=== PATIENT | male | born 1995 | race African-American/Black ===

== ENCOUNTER 2016-12-26 17:56 | Emergency (ER) | payer OTHER ==
[~2016-12-26] VITALS: Ht 177.8 cm; Wt 82.0 kg
[~2016-12-26 17:56] MED LIST: IBUP-1510 PO
[2016-12-26 18:27] VITALS: BP 137/71
== END 2016-12-26 23:00 | disposition left against medical advice (07) ==
LOC: ER 17:56
DX: Z04.3 Encounter for examination and observation following other accident (principal); M54.5 Low back pain; Z53.21 Procedure and treatment not carried out due to patient leaving prior to being seen by health care provider

== ENCOUNTER 2016-12-28 08:27 | Emergency (ER) | payer OTHER ==
[~2016-12-28] VITALS: Ht 177.8 cm; Wt 82.0 kg
[2016-12-28] MEDS ORDERED: IBUPROFEN 600MG TABLET PO ONE (09:45)
[2016-12-28 09:54] VITALS: BP 130/84
== END 2016-12-28 09:56 | disposition home or self-care (01) ==
LOC: ER 08:27
DX: S39.012A Strain of muscle, fascia and tendon of lower back, initial encounter (principal); F12.10 Cannabis abuse, uncomplicated; X58.XXXA Exposure to other specified factors, initial encounter; Y93.67 Activity, basketball; Y92.89 Other specified places as the place of occurrence of the external cause; Y99.8 Other external cause status
CPT/HCPCS: 99282

== ENCOUNTER 2017-12-24 08:06 | Emergency (ER) | payer OTHER ==
[~2017-12-24] VITALS: Ht 177.8 cm; Wt 82.0 kg
[~2017-12-24 08:06] MED LIST changes: -IBUP-1510 PO; +IBUP-2030 PO
[2017-12-24 08:18] VITALS: BP 133/77
== END 2017-12-24 09:29 | disposition home or self-care (01) ==
LOC: ER 08:37
DX: H92.02 Otalgia, left ear (principal); F12.10 Cannabis abuse, uncomplicated
CPT/HCPCS: 99282

== ENCOUNTER 2018-02-15 23:37 | Emergency (ER) | payer OTHER ==
[~2018-02-15] VITALS: Ht 177.8 cm; Wt 83.0 kg
[2018-02-15 23:59] VITALS: BP 136/62
== END 2018-02-16 05:35 | disposition left against medical advice (07) ==
LOC: ER 02-16 00:37
DX: M25.561 Pain in right knee (principal); Z53.21 Procedure and treatment not carried out due to patient leaving prior to being seen by health care provider

== ENCOUNTER 2018-02-16 09:08 | Emergency (ER) | payer OTHER ==
[~2018-02-16] VITALS: Ht 177.8 cm; Wt 84.7 kg
[2018-02-16 09:16] VITALS: BP 133/64
[2018-02-16] MEDS ORDERED: HYDROCODONE/ACETAMINOPHEN 5/325MG TABLET PO ONE (09:45)
== END 2018-02-16 10:30 | disposition home or self-care (01) ==
LOC: ER 09:08
DX: S89.81XA Other specified injuries of right lower leg, initial encounter (principal); F12.10 Cannabis abuse, uncomplicated; X58.XXXA Exposure to other specified factors, initial encounter; Y93.67 Activity, basketball; Y92.89 Other specified places as the place of occurrence of the external cause; Y99.8 Other external cause status
CPT/HCPCS: 73562; 99284; L1830

== ENCOUNTER 2019-01-11 09:30 | Emergency (ER) | payer OTHER ==
[~2019-01-11] VITALS: Ht 180.3 cm; Wt 81.0 kg
[2019-01-11] MEDS ORDERED: KETOROLAC 60MG/2ML VIAL IM STA (12:09)
[2019-01-11 12:24] VITALS: BP 130/78
== END 2019-01-11 13:18 | disposition home or self-care (01) ==
LOC: ER 09:30
DX: S83.8X1A Sprain of other specified parts of right knee, initial encounter (principal); X58.XXXA Exposure to other specified factors, initial encounter; Y93.67 Activity, basketball; Y92.89 Other specified places as the place of occurrence of the external cause; Y99.8 Other external cause status
CPT/HCPCS: 73560; 96372; 99283; J1885; Z7610

== ENCOUNTER 2022-11-17 07:10 | Emergency (ER) | payer OTHER ==
[~2022-11-17] VITALS: Ht 180.3 cm; Wt 87.0 kg
[2022-11-17 07:18] VITALS: BP 124/75; RESP 20; TEMP 97.9; O2SAT 100
[2022-11-17 07:27] VITALS: PULSE 61
== END 2022-11-17 10:38 | disposition home or self-care (01) ==
LOC: ER 07:10
DX: Z48.02 Encounter for removal of sutures (principal)
CPT/HCPCS: 99281